=== PATIENT | male | born 1975 | race Caucasian/White ===

== ENCOUNTER → 2016-09-08 | Outpatient (CLI) | payer BC ==
[2016-09-08 16:06] LABS: Basophils % (A) 0 %; CHCM 33.4; Eosinophils # (A) 0.1 k/uL (0-0.7); Eosinophils % (A) 3 %; HCT 46.5 % (39.0-53.0); HDW 2.18; HGB 15.3 gm/dL (13.0-17.5); Luc # (Auto) 0.16; Luc % (Auto) 3; Lymphocytes # (A) 2.7 k/uL (1.0-4.8); Lymphocytes % (A) 46 %; MCH 31.8 pg (25.0-35.0); MCV 96.3 fL (80.0-100.0); Mean Platelet Volume 6.6; Monocytes # (A) 0.3 k/uL (0-1.0); Monocytes % (A) 6 %; Neutrophils # (A) 2.5 k/uL (1.3-7.7); Neutrophils % (A) 43 %; RBC 4.83 m/uL (4.30-5.90); RDW 12.7 % (11.5-15.5); WBC 5.8 k/uL (3.8-10.6); WBC (Perox) 5.91
[2016-09-08 16:28] LABS: ALT 38 U/L (21-72); AST 41 U/L (17-59); Alkaline Phosphatase 74 U/L (38-126); Anion Gap 10 mmol/L; Blood Urea Nitrogen 24 mg/dL (9-20); Calcium 9.7 mg/dL (8.4-10.2); Carbon Dioxide 27 mmol/L (22-30); Chloride 103 mmol/L (98-107); Glucose 97 mg/dL (74-99); Non-African American GFR(MDRD) >60 (>60 ml/min/1.73 sqM); Potassium 4.8 mmol/L (3.5-5.1); Sodium 140 mmol/L (137-145); Total Bilirubin 0.4 mg/dL (0.2-1.3); Total Protein 7.5 g/dL (6.3-8.2)
[2016-09-09 15:17] LABS: LOG HIV Copies/mL <1.60 (<1.60)
== END | disposition home or self-care (01) ==
LOC: LABWHC1 15:33
PROVIDERS: ATTEND Internal Medicine Infectious Disease
DX: B20 Human immunodeficiency virus [HIV] disease (principal)
CPT/HCPCS: 36415; 80053; 85025; 86360; 87536

== ENCOUNTER 2018-10-19 17:08 | Emergency (ER) | payer BC ==
[2018-10-19 17:46] VITALS: BP 156/96; PULSE 77; RESP 18; TEMP 98.6
[2018-10-19] MEDS ORDERED: PENICILLIN G BENZATHINE 1,200,000 UNIT/2 ML SYRINGE IM STA (17:50)
--- NOTE | 2018-10-19 18:47 | ED ---
General Adult HPI - General Chief complaint: Recheck/Abnormal Lab/Rx Stated complaint: Needs penicillin per PCP Time Seen by Provider: 10/19/18 17:50 Source: patient, RN notes reviewed Mode of arrival: ambulatory Limitations: no limitations - History of Present Illness Initial comments: 43-year-old male presents to the emergency department for a chief complaint of needing medication administered. Patient has had a rash for several weeks. He saw dermatology and had a biopsy done. 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 Dermatology sent him immediately over to the ER for administration of penicillin. He denies any headache, nausea or vomiting, neck stiffness, eye pain. Denies any other complaints at this time. States he is generally feeling well. Patient has no other complaints at this time including shortness of breath , chest pain, abdominal pain, nausea or vomiting, headache, or visual changes. - Related Data Home Medications Medication Instructions Recorded Confirmed Ascorbic Acid [Vitamin C] 500 mg PO DAILY 02/03/14 04/01/16 Ipratropium/Albuterol Sulfate 2 puff INHALATION RT-DAILY 02/03/14 04/01/16 [Combivent Respimat Inhaler] Multivitamins, Thera [Multivitamin] 1 tab PO DAILY 02/03/14 04/01/16 Vitamin E (Dl,Tocopheryl Acet) 400 unit PO DAILY 02/03/14 04/01/16 [Vitamin E] Elviteg/Cob/Emtri/Tenof Alafen 1 tab PO DAILY 04/01/16 04/01/16 [Genvoya Tablet] HYDROcodone/APAP 7.5-325MG [[place] 1 tab PO DAILY PRN 04/01/16 04/01/16 7.5-325] LORazepam [Ativan] 1 mg PO BID PRN 04/01/16 04/01/16 Levalbuterol Hfa Inhaler [Xopenex 2 puff INHALATION RT-TID PRN 04/01/16 04/01/16 Hfa Inhaler] Varenicline [Chantix] 1 mg PO BID 04/01/16 04/01/16 valACYclovir HCL [Valtrex] 2,000 mg PO DAILY PRN 04/01/16 04/01/16 Previous Rx's Medication Instructions Recorded Hydrocodone/Acetaminophen [[place] 1 each PO Q6HR PRN #20 tab 04/01/16 5-325] Sulfamethoxazole/Trimethoprim 1 each PO Q12H 14 Days tab 04/01/16 [Bactrim DS 800-160 mg] Allergies Allergy/AdvReac Type Severity Reaction Status Date / Time No Known Allergies Allergy Verified 10/19/18 17:46 Review of Systems ROS Statement: Those systems with pertinent positive or pertinent negative responses have been documented in the HPI. ROS Other: All systems not noted in ROS Statement are negative. Past Medical History Past Medical History: No Reported History Additional Past Medical History / Comment(s): SKIN CANCER, HIV, secondary syphillis History of Any Multi-Drug Resistant Organisms: MRSA Date of last positivie culture/infection: 02/03/2014 MDRO Source:: Face Past Surgical History: Orthopedic Surgery Additional Past Surgical History / Comment(s): SKIN CANCER REMOVAL, ANKLE SURGERY Past Psychological History: No Psychological Hx Reported Smoking Status: Current some day smoker Past Alcohol Use History: Daily Past Drug Use History: Marijuana General Exam Limitations: no limitations General appearance: alert, in no apparent distress Head exam: Present: atraumatic, normocephalic, normal inspection Eye exam: Present: normal appearance, PERRL (No evidence of [place] Mckeon pupil), EOMI. Absent: scleral icterus, conjunctival injection, periorbital swelling ENT exam: Present: normal exam, normal oropharynx, mucous membranes moist, TM's normal bilaterally Neck exam: Present: normal inspection, full ROM. Absent: tenderness, meningismus (No neck stiffness, negative Kernig or Brudzinski sign), lymphadenopathy Respiratory exam: Present: normal lung sounds bilaterally. Absent: respiratory distress, wheezes, rales, rhonchi, stridor Cardiovascular Exam: Present: regular rate, normal rhythm, normal heart sounds. Absent: systolic murmur, diastolic murmur, rubs, gallop, clicks Neurological exam: Present: alert, oriented X3, CN II-XII intact, normal gait, reflexes normal (No hyperreflexia) Psychiatric exam: Present: normal affect, normal mood Skin exam: Present: rash (She denies any erythematous maculopapular rash noted to bilateral arms. There are also about 3 small lesions noted to the low dorsum ) Course Vital Signs 10/19/18 17:40 Temperature 98.6 F Pulse Rate 77 Respiratory 18 Rate Blood Pressure 156/96 O2 Sat by Pulse 97 Oximetry Medical Decision Making - Medical Decision Making 43-year-old male presents to the emergency department for a chief complaint of needing penicillin administered. Patient was diagnosed by Victorino owens and sent to the ER. Paperwork was reviewed and patient needs 2.4 units of penicillin administered. On exam patient does have maculopapular rash noted to bilateral arms. Mild rash noted to the dorsum. No evidence of neurologic or systemic involvement. Medication was administered. Patient will follow-up with the dry cleaner helper and return here if he has any worsening symptoms. Patient was told he only needed one dose, I did discuss that it is possible he may need repeat doses over the next 2 weeks so to follow-up with Mell for more direction. Disposition Clinical Impression: Secondary syphilis in male, Medication administered Disposition: HOME SELF-CARE Condition: Good Additional Instructions: Please follow up with dermatology in 1-2 days. As discussed you may need 2 more doses of this medication. Return here if you have any worsening symptoms including headaches, neck stiffness or any other concerns. Is patient prescribed a controlled substance at d/c from ED?: No Referrals: Juan Carlos Perdomo MD [Primary Care Provider] - 1-2 days Jumana Monte MD [STAFF PHYSICIAN] - 1-2 days Time of Disposition: 18:53
== END 2018-10-19 19:09 | disposition home or self-care (01) ==
LOC: EC 17:08
DX: Z02.89 Encounter for other administrative examinations (principal); A51.49 Other secondary syphilitic conditions; Z21 Asymptomatic human immunodeficiency virus [HIV] infection status; Z86.19 Personal history of other infectious and parasitic diseases; Z86.14 Personal history of Methicillin resistant Staphylococcus aureus infection; Z85.828 Personal history of other malignant neoplasm of skin; F17.200 Nicotine dependence, unspecified, uncomplicated; Z79.899 Other long term (current) drug therapy
CPT/HCPCS: 99281; 96372; J0561

== ENCOUNTER 2018-11-25 12:01 | Observation (INO) | payer BC ==
[2018-11-25 14:15] LABS: Basophils % (A) 0 %; Eosinophils # (A) 0.1 k/uL (0-0.7); Eosinophils % (A) 1 %; HCT 51.5 % (39.0-53.0); HGB 16.1 gm/dL (13.0-17.5); Lymphocytes # (A) 2.7 k/uL (1.0-4.8); Lymphocytes % (A) 24 %; MCH 30.1 pg (25.0-35.0); MCHC 31.3 g/dL (31.0-37.0); MCV 96.2 fL (80.0-100.0); Mean Platelet Volume 6.3; Monocytes # (A) 0.7 k/uL (0-1.0); Monocytes % (A) 6 %; Neutrophils # (A) 7.5 k/uL (1.3-7.7); Neutrophils % (A) 68 %; Platelet Count 296 k/uL (150-450); RBC 5.35 m/uL (4.30-5.90); RDW 14.7 % (11.5-15.5); WBC 11.2 k/uL (3.8-10.6)
[2018-11-25 14:34] LABS: INR 0.9 (<1.2); Partial Thromboplastin Time 22.6 sec (22.0-30.0); Prothrombin Time 9.7 sec (9.0-12.0)
[2018-11-25 14:42] LABS: Appearance,Urine Clear (Clear); Bilirubin,Urine Negative (Negative); Blood,Urine Negative (Negative); Color,Urine Light Yellow; Glucose,Urine (UA) Negative (Negative); Ketones,Urine Negative (Negative); Leukocyte Esterase,Urine Negative (Negative); Nitrite,Urine Negative (Negative); Protein,Urine Negative (Negative); Specific Gravity,Urine 1.015 (1.001-1.035); Urobilinogen,Urine <2.0 mg/dL (<2.0)
[2018-11-25] MEDS ORDERED: ASPIRIN 81 MG PO STA (14:47)
--- NOTE | 2018-11-25 14:59 | XR ---
EXAMINATION TYPE: XR chest 2V DATE OF EXAM: 11/25/2018 COMPARISON: NONE TECHNIQUE: PA and lateral views submitted. HISTORY: Left-sided chest pain FINDINGS: The lungs are clear and there is no pneumothorax, pleural effusion, or focal pneumonia. Vague nodul ar density overlying the right lower lung field may represent nipple shadow. There is hyperinflation correlate for asthma or COPD. Biapical pleural thickening. IMPRESSION: 1. No acute process. Correlate for asthma or COPD secondary to hyperinflation. 2. Vague nodular density overlying the right lower lung field may represent a nipple shadow correlate clinically.
--- NOTE | 2018-11-25 15:09 | ED ---
General Adult HPI - General Chief complaint: Abdominal Pain Stated complaint: left side pain Time Seen by Provider: 11/25/18 14:22 Source: patient, RN notes reviewed, old records reviewed Mode of arrival: ambulatory Limitations: no limitations - History of Present Illness Initial comments: 43-year-old male patient with past month history of tobacco abuse, secondary syphilis status post treatment presents to ED with approximately 2 weeks of waxing and waning pain approximately 2 inches below his left nipple. Denies any radiation. Patient reports that this pain is exacerbated by musculoskeletal movement, twisting, coughing, deep inspiration. Patient does report that appears to be worse with exertion and better at rest. Patient describes as a deck pain. Patient has any chest pain at rest, patient has any shortness of breath. Patient reports that he is a daily smoker. Patient reports that he does have pain with cough. Patient states that he does not have any personal cardiac history. Reports that he had a stress test "a few years back" and was reportedly normal. Patient does not currently have any pain. Patient is currently asymptomatic. Patient has any diaphoresis, nausea vomiting diarrhea, abdominal pain. Systemic: Pt denies fatigue, myalgia, fever/chills, rash. Pt denies weakness, night sweats, weight loss. Neuro: Pt denies headache, visual disturbances, syncope or pre-syncope. HEENT: Pt denies ocular discharge or irritation, otalgia, rhinorrhea, pharyngitis or notable lymphadenopathy. Cardiopulmonary: Pt denies SOB, heart palpitations, dyspnea on exertion. Abdominal/GI: Pt denies abdominal pain, n/v/d. : Pt denies dysuria, burning w/ urination, frequency/urgency. Denies new onset urinary or bowel incontinence. MSK: Pt denies myalgia, loss of strength or function in extremities. Neuro: Pt denies new onset weakness, paresthesias. - Related Data Home Medications Medication Instructions Recorded Confirmed Ascorbic Acid [Vitamin C] 500 mg PO DAILY 02/03/14 04/01/16 Ipratropium/Albuterol Sulfate 2 puff INHALATION RT-DAILY 02/03/14 04/01/16 [Combivent Respimat Inhaler] Multivitamins, Thera [Multivitamin] 1 tab PO DAILY 02/03/14 04/01/16 Vitamin E (Dl,Tocopheryl Acet) 400 unit PO DAILY 02/03/14 04/01/16 [Vitamin E] Elviteg/Cob/Emtri/Tenof Alafen 1 tab PO DAILY 04/01/16 04/01/16 [Genvoya Tablet] HYDROcodone/APAP 7.5-325MG [[place] 1 tab PO DAILY PRN 04/01/16 04/01/16 7.5-325] LORazepam [Ativan] 1 mg PO BID PRN 04/01/16 04/01/16 Levalbuterol Hfa Inhaler [Xopenex 2 puff INHALATION RT-TID PRN 04/01/16 04/01/16 Hfa Inhaler] Varenicline [Chantix] 1 mg PO BID 04/01/16 04/01/16 valACYclovir HCL [Valtrex] 2,000 mg PO DAILY PRN 04/01/16 04/01/16 Previous Rx's Medication Instructions Recorded Hydrocodone/Acetaminophen [[place] 1 each PO Q6HR PRN #20 tab 04/01/16 5-325] Sulfamethoxazole/Trimethoprim 1 each PO Q12H 14 Days tab 04/01/16 [Bactrim DS 800-160 mg] Allergies Allergy/AdvReac Type Severity Reaction Status Date / Time No Known Allergies Allergy Verified 11/25/18 12:05 Review of Systems ROS Statement: Those systems with pertinent positive or pertinent negative responses have been documented in the HPI. ROS Other: All systems not noted in ROS Statement are negative. Past Medical History Past Medical History: No Reported History Additional Past Medical History / Comment(s): SKIN CANCER, HIV, secondary syphillis History of Any Multi-Drug Resistant Organisms: MRSA Date of last positivie culture/infection: 02/03/2014 MDRO Source:: Face Past Surgical History: Orthopedic Surgery Additional Past Surgical History / Comment(s): SKIN CANCER REMOVAL, ANKLE SURGERY Past Psychological History: No Psychological Hx Reported Smoking Status: Current some day smoker Past Alcohol Use History: None Reported, Occasional Past Drug Use History: Marijuana General Exam - General Exam Comments Initial Comments: Constitutional: NAD, AOX3, Pt has pleasant affect. HEENT: NC/AT, trachea midline, neck supple, no lymphadenopathy. Posterior pharynx non erythematous, without exudates. External ears appear normal, without discharge. Mucous membranes moist. Eyes PERRLA, EOM intact. There is no scleral icterus. No pallor noted. Cardiopulmonary: RRR, no murmurs, rubs or gallops, no JVD noted. Lungs CTAB in anterior and posterior barnes. No peripheral edema. Pain not icterus. I palpation. Abdominal exam: Abdomen soft and non-distended. Abdomen non-tender to palpation in all 4 quadrants. Bowel sounds active in LLQ. No hepatosplenomegaly. No ecchymosis Neuro: CN II-XII grossly intact. No nuchal rigidity. MSK: No posterior calf tenderness bilaterally, homans sign negative bilaterally. Posterior tibialis and radial pulse +2 bilaterally. Sensation intact in upper and lower extremities. Full active ROM in upper and lower extremities, 5/5 stregnth. Limitations: no limitations Course Vital Signs 11/25/18 11/25/18 12:03 16:53 Temperature 98 F 98.1 F Pulse Rate 78 77 Respiratory 20 16 Rate Blood Pressure 165/98 149/92 O2 Sat by Pulse 99 97 Oximetry Medical Decision Making - Medical Decision Making 43-year-old male patient with past month history of tobacco abuse, secondary syphilis status post treatment presents to ED with approximately 2 weeks of waxing and waning pain approximately 2 inches below his left nipple. Denies any radiation. Patient reports that this pain is exacerbated by musculoskeletal movement, twisting, coughing, deep inspiration. Patient does report that appears to be worse with exertion and better at rest. Patient describes as a deck pain. Patient has any chest pain at rest, patient has any shortness of b reath. Patient reports that he is a daily smoker. Patient reports that he does have pain with cough. Patient states that he does not have any personal cardiac history. Reports that he had a stress test "a few years back" and was reportedly normal. Patient does not currently have any pain. Patient is currently asymptomatic. Patient has any diaphoresis, nausea vomiting diarrhea, abdominal pain. Pt vss, afebrile. Physical exam did not display acute pathology. Dr. donohue field mild leukocytosis of 11.2. Coagulation studies non- impressive. D-dimer mildly elevated at 1.73. CMP noncompressive. UA negative. EKG not concerning for acute ischemia. CT chest angiography revealed no evidence of pulmonary embolism. Mild fibrotic changes. Mild emphysema. Subsegmental atelectasis of lung bases. Patient admitted for telemetry, cardiac observation. Case discussed with Dr. Castillo. - Lab Data Result diagrams: 11/25/18 13:55 11/25/18 14:00 Lab Results 11/25/18 11/25/18 11/25/18 Range/Units 13:55 13:55 14:00 WBC 11.2 H (3.8-10.6) k/uL RBC 5.35 (4.30-5.90) m/uL Hgb 16.1 (13.0-17.5) gm/dL Hct 51.5 (39.0-53.0) % MCV 96.2 (80.0-100.0) fL MCH 30.1 (25.0-35.0) pg MCHC 31.3 (31.0-37.0) g/dL RDW 14.7 (11.5-15.5) % Plt Count 296 (150-450) k/uL Neutrophils % 68 % Lymphocytes % 24 % Monocytes % 6 % Eosinophils % 1 % Basophils % 0 % Neutrophils # 7.5 (1.3-7.7) k/uL Lymphocytes # 2.7 (1.0-4.8) k/uL Monocytes # 0.7 (0-1.0) k/uL Eosinophils # 0.1 (0-0.7) k/uL Basophils # 0.0 (0-0.2) k/uL PT 9.7 (9.0-12.0) sec INR 0.9 (<1.2) APTT 22.6 (22.0-30.0) sec D-Dimer (<0.60) mg/L FEU Sodium 140 (137-145) mmol/L Potassium 4.1 (3.5-5.1) mmol/L Chloride 107 (98-107) mmol/L Carbon Dioxide 24 (22-30) mmol/L Anion Gap 9 mmol/L BUN 14 (9-20) mg/dL Creatinine 0.63 L (0.66-1.25) mg/dL Est GFR (CKD-EPI)AfAm >90 (>60 ml/min/1.73 sqM) Est GFR (CKD-EPI)NonAf >90 (>60 ml/min/1.73 sqM) Glucose 97 (74-99) mg/dL Calcium 10.1 (8.4-10.2) mg/dL Magnesium (1.6-2.3) mg/dL Total Bilirubin 0.7 (0.2-1.3) mg/dL AST 35 (17-59) U/L ALT 40 (21-72) U/L Alkaline Phosphatase 92 (38-126) U/L Troponin I (0.000-0.034) ng/mL Total Protein 7.6 (6.3-8.2) g/dL Albumin 4.7 (3.5-5.0) g/dL Amylase 111 H (30-110) U/L Lipase 153 (23-300) U/L Urine Color Urine Appearance (Clear) Urine pH (5.0-8.0) Ur Specific [place] (1.001-1.035) Urine Protein (Negative) Urine Glucose (UA) (Negative) Urine Ketones (Negative) Urine Blood (Negative) Urine Nitrite (Negative) Urine Bilirubin (Negative) Urine Urobilinogen (<2.0) mg/dL Ur Leukocyte Esterase (Negative) 11/25/18 11/25/18 11/25/18 Range/Units 14:00 14:00 14:00 WBC (3.8-10.6) k/uL RBC (4.30-5.90) m/uL Hgb (13.0-17.5) gm/dL Hct (39.0-53.0) % MCV (80.0-100.0) fL MCH (25.0-35.0) pg MCHC (31.0-37.0) g/dL RDW (11.5-15.5) % Plt Count (150-450) k/uL Neutrophils % % Lymphocytes % % Monocytes % % Eosinophils % % Basophils % % Neutrophils # (1.3-7.7) k/uL Lymphocytes # (1.0-4.8) k/uL Monocytes # (0-1.0) k/uL Eosinophils # (0-0.7) k/uL Basophils # (0-0.2) k/uL PT (9.0-12.0) sec INR (<1.2) APTT (22.0-30.0) sec D-Dimer 1.73 H (<0.60) mg/L FEU Sodium (137-145) mmol/L Potassium (3.5-5.1) mmol/L Chloride (98-107) mmol/L Carbon Dioxide (22-30) mmol/L Anion Gap mmol/L BUN (9-20) mg/dL Creatinine (0.66-1.25) mg/dL Est GFR (CKD-EPI)AfAm (>60 ml/min/1.73 sqM) Est GFR (CKD-EPI)NonAf (>60 ml/min/1.73 sqM) Glucose (74-99) mg/dL Calcium (8.4-10.2) mg/dL Magnesium 2.2 (1.6-2.3) mg/dL Total Bilirubin (0.2-1.3) mg/dL AST (17-59) U/L ALT (21-72) U/L Alkaline Phosphatase (38-126) U/L Troponin I <0.012 (0.000-0.034) ng/mL Total Protein (6.3-8.2) g/dL Albumin (3.5-5.0) g/dL Amylase (30-110) U/L Lipase (23-300) U/L Urine Color Urine Appearance (Clear) Urine pH (5.0-8.0) Ur Specific [place] (1.001-1.035) Urine Protein (Negative) Urine Glucose (UA) (Negative) Urine Ketones (Negative) Urine Blood (Negative) Urine Nitrite (Negative) Urine Bilirubin (Negative) Urine Urobilinogen (<2.0) mg/dL Ur Leukocyte Esterase (Negative) 11/25/18 Range/Units 14:27 WBC (3.8-10.6) k/uL RBC (4.30-5.90) m/uL Hgb (13.0-17.5) gm/dL Hct (39.0-53.0) % MCV (80.0-100.0) fL MCH (25.0-35.0) pg MCHC (31.0-37.0) g/dL RDW (11.5-15.5) % Plt Count (150-450) k/uL Neutrophils % % Lymphocytes % % Monocytes % % Eosinophils % % Basophils % % Neutrophils # (1.3-7.7) k/uL Lymphocytes # (1.0-4.8) k/uL Monocytes # (0-1.0) k/uL Eosinophils # (0-0.7) k/uL Basophils # (0-0.2) k/uL PT (9.0-12.0) sec INR (<1.2) APTT (22.0-30.0) sec D-Dimer (<0.60) mg/L FEU Sodium (137-145) mmol/L Potassium (3.5-5.1) mmol/L Chloride (98-107) mmol/L Carbon Dioxide (22-30) mmol/L Anion Gap mmol/L BUN (9-20) mg/dL Creatinine (0.66-1.25) mg/dL Est GFR (CKD-EPI)AfAm (>60 ml/min/1.73 sqM) Est GFR (CKD-EPI)NonAf (>60 ml/min/1.73 sqM) Glucose (74-99) mg/dL Calcium (8.4-10.2) mg/dL Magnesium (1.6-2.3) mg/dL Total Bilirubin (0.2-1.3) mg/dL AST (17-59) U/L ALT (21-72) U/L Alkaline Phosphatase (38-126) U/L Troponin I (0.000-0.034) ng/mL Total Protein (6.3-8.2) g/dL Albumin (3.5-5.0) g/dL Amylase (30-110) U/L Lipase (23-300) U/L Urine Color Light Yellow Urine Appearance Clear (Clear) Urine pH 6.0 (5.0-8.0) Ur Specific [place] 1.015 (1.001-1.035) Urine Protein Negative (Negative) Urine Glucose (UA) Negative (Negative) Urine Ketones Negative (Negative) Urine Blood Negative (Negative) Urine Nitrite Negative (Negative) Urine Bilirubin Negative (Negative) Urine Urobilinogen <2.0 (<2.0) mg/dL Ur Leukocyte Esterase Negative (Negative) Disposition Clinical Impression: Chest pain Disposition: ADMITTED IP TO THIS [facility] Condition: Serious Is patient prescribed a controlled substance at d/c from ED?: No Referrals: Juan Carlos Perdomo MD [Primary Care Provider] - 1-2 days
[2018-11-25] MEDS ORDERED: SODIUM CHLORIDE 0.9% 1,000 ML IV STA (15:10)
[2018-11-25 15:16] LABS: ALT 40 U/L (21-72); AST 35 U/L (17-59); Albumin 4.7 g/dL (3.5-5.0); Alkaline Phosphatase 92 U/L (38-126); Amylase 111 U/L (30-110); Anion Gap 9 mmol/L; Blood Urea Nitrogen 14 mg/dL (9-20); Calcium 10.1 mg/dL (8.4-10.2); Carbon Dioxide 24 mmol/L (22-30); Chloride 107 mmol/L (98-107); Glucose 97 mg/dL (74-99); Lipase 153 U/L (23-300); Potassium 4.1 mmol/L (3.5-5.1); Sodium 140 mmol/L (137-145); Total Bilirubin 0.7 mg/dL (0.2-1.3); Total Protein 7.6 g/dL (6.3-8.2)
--- NOTE | 2018-11-25 17:15 | CT ---
EXAMINATION TYPE: CT chest angio for PE DATE OF EXAM: 11/25/2018 COMPARISON: None HISTORY: Left lower lobe pain. CT DLP: 326.4 mGycm Automated exposure control for dose reduction was used. CONTRAST: CT Chest for pulmonary embolism performed with with IV Contrast, patient injected with 100 mL of Isov ue 370. There are 3-D post processed images. FINDINGS: There is no mediastinal adenopathy. Thoracic aorta shows no evidence of aneurysm or dissection. Heart size is normal. There is no pericardial effusion. There are no hilar masses. There is normal contrast opacification of the pulmonary arteries. I see no filling defect. The lungs are clear of consolidation. There is no evidence of a pulmonary mass. There is pulmonary em physema at the lung apices. There is some mild pleural thickening at the lung apices. There is no bon y destructive process. There is small linear density at the lung bases. IMPRESSION: No evidence of pulmonary embolism. Pulmonary mild fibrotic changes. Mild emphysema. Subsegmental atel ectasis at the lung bases.
[2018-11-25] MEDS ORDERED: NITROGLYCERIN SL TABS 0.4 MG TAB SUBLINGUAL PRN (18:36)
[2018-11-25] MEDS ORDERED: valACYclovir HCL 1,000 MG TABLET PO PRN (20:31)
--- NOTE | 2018-11-25 21:03 | ED ---
Medical Decision Making - Lab Data Result diagrams: 11/25/18 13:55 11/25/18 14:00 Lab Results 11/25/18 11/25/18 11/25/18 Range/Units 13:55 13:55 14:00 WBC 11.2 H (3.8-10.6) k/uL RBC 5.35 (4.30-5.90) m/uL Hgb 16.1 (13.0-17.5) gm/dL Hct 51.5 (39.0-53.0) % MCV 96.2 (80.0-100.0) fL MCH 30.1 (25.0-35.0) pg MCHC 31.3 (31.0-37.0) g/dL RDW 14.7 (11.5-15.5) % Plt Count 296 (150-450) k/uL Neutrophils % 68 % Lymphocytes % 24 % Monocytes % 6 % Eosinophils % 1 % Basophils % 0 % Neutrophils # 7.5 (1.3-7.7) k/uL Lymphocytes # 2.7 (1.0-4.8) k/uL Monocytes # 0.7 (0-1.0) k/uL Eosinophils # 0.1 (0-0.7) k/uL Basophils # 0.0 (0-0.2) k/uL PT 9.7 (9.0-12.0) sec INR 0.9 (<1.2) APTT 22.6 (22.0-30.0) sec D-Dimer (<0.60) mg/L FEU Sodium 140 (137-145) mmol/L Potassium 4.1 (3.5-5.1) mmol/L Chloride 107 (98-107) mmol/L Carbon Dioxide 24 (22-30) mmol/L Anion Gap 9 mmol/L BUN 14 (9-20) mg/dL Creatinine 0.63 L (0.66-1.25) mg/dL Est GFR (CKD-EPI)AfAm >90 (>60 ml/min/1.73 sqM) Est GFR (CKD-EPI)NonAf >90 (>60 ml/min/1.73 sqM) Glucose 97 (74-99) mg/dL Calcium 10.1 (8.4-10.2) mg/dL Magnesium (1.6-2.3) mg/dL Total Bilirubin 0.7 (0.2-1.3) mg/dL AST 35 (17-59) U/L ALT 40 (21-72) U/L Alkaline Phosphatase 92 (38-126) U/L Troponin I (0.000-0.034) ng/mL Total Protein 7.6 (6.3-8.2) g/dL Albumin 4.7 (3.5-5.0) g/dL Amylase 111 H (30-110) U/L Lipase 153 (23-300) U/L Urine Color Urine Appearance (Clear) Urine pH (5.0-8.0) Ur Specific [place] (1.001-1.035) Urine Protein (Negative) Urine Glucose (UA) (Negative) Urine Ketones (Negative) Urine Blood (Negative) Urine Nitrite (Negative) Urine Bilirubin (Negative) Urine Urobilinogen (<2.0) mg/dL Ur Leukocyte Esterase (Negative) 11/25/18 11/25/18 11/25/18 Range/Units 14:00 14:00 14:00 WBC (3.8-10.6) k/uL RBC (4.30-5.90) m/uL Hgb (13.0-17.5) gm/dL Hct (39.0-53.0) % MCV (80.0-100.0) fL MCH (25.0-35.0) pg MCHC (31.0-37.0) g/dL RDW (11.5-15.5) % Plt Count (150-450) k/uL Neutrophils % % Lymphocytes % % Monocytes % % Eosinophils % % Basophils % % Neutrophils # (1.3-7.7) k/uL Lymphocytes # (1.0-4.8) k/uL Monocytes # (0-1.0) k/uL Eosinophils # (0-0.7) k/uL Basophils # (0-0.2) k/uL PT (9.0-12.0) sec INR (<1.2) APTT (22.0-30.0) sec D-Dimer 1.73 H (<0.60) mg/L FEU Sodium (137-145) mmol/L Potassium (3.5-5.1) mmol/L Chloride (98-107) mmol/L Carbon Dioxide (22-30) mmol/L Anion Gap mmol/L BUN (9-20) mg/dL Creatinine (0.66-1.25) mg/dL Est GFR (CKD-EPI)AfAm (>60 ml/min/1.73 sqM) Est GFR (CKD-EPI)NonAf (>60 ml/min/1.73 sqM) Glucose (74-99) mg/dL Calcium (8.4-10.2) mg/dL Magnesium 2.2 (1.6-2.3) mg/dL Total Bilirubin (0.2-1.3) mg/dL AST (17-59) U/L ALT (21-72) U/L Alkaline Phosphatase (38-126) U/L Troponin I <0.012 (0.000-0.034) ng/mL Total Protein (6.3-8.2) g/dL Albumin (3.5-5.0) g/dL Amylase (30-110) U/L Lipase (23-300) U/L Urine Color Urine Appearance (Clear) Urine pH (5.0-8.0) Ur Specific [place] (1.001-1.035) Urine Protein (Negative) Urine Glucose (UA) (Negative) Urine Ketones (Negative) Urine Blood (Negative) Urine Nitrite (Negative) Urine Bilirubin (Negative) Urine Urobilinogen (<2.0) mg/dL Ur Leukocyte Esterase (Negative) 11/25/18 Range/Units 14:27 WBC (3.8-10.6) k/uL RBC (4.30-5.90) m/uL Hgb (13.0-17.5) gm/dL Hct (39.0-53.0) % MCV (80.0-100.0) fL MCH (25.0-35.0) pg MCHC (31.0-37.0) g/dL RDW (11.5-15.5) % Plt Count (150-450) k/uL Neutrophils % % Lymphocytes % % Monocytes % % Eosinophils % % Basophils % % Neutrophils # (1.3-7.7) k/uL Lymphocytes # (1.0-4.8) k/uL Monocytes # (0-1.0) k/uL Eosinophils # (0-0.7) k/uL Basophils # (0-0.2) k/uL PT (9.0-12.0) sec INR (<1.2) APTT (22.0-30.0) sec D-Dimer (<0.60) mg/L FEU Sodium (137-145) mmol/L Potassium (3.5-5.1) mmol/L Chloride (98-107) mmol/L Carbon Dioxide (22-30) mmol/L Anion Gap mmol/L BUN (9-20) mg/dL Creatinine (0.66-1.25) mg/dL Est GFR (CKD-EPI)AfAm (>60 ml/min/1.73 sqM) Est GFR (CKD-EPI)NonAf (>60 ml/min/1.73 sqM) Glucose (74-99) mg/dL Calcium (8.4-10.2) mg/dL Magnesium (1.6-2.3) mg/dL Total Bilirubin (0.2-1.3) mg/dL AST (17-59) U/L ALT (21-72) U/L Alkaline Phosphatase (38-126) U/L Troponin I (0.000-0.034) ng/mL Total Protein (6.3-8.2) g/dL Albumin (3.5-5.0) g/dL Amylase (30-110) U/L Lipase (23-300) U/L Urine Color Light Yellow Urine Appearance Clear (Clear) Urine pH 6.0 (5.0-8.0) Ur Specific [place] 1.015 (1.001-1.035) Urine Protein Negative (Negative) Urine Glucose (UA) Negative (Negative) Urine Ketones Negative (Negative) Urine Blood Negative (Negative) Urine Nitrite Negative (Negative) Urine Bilirubin Negative (Negative) Urine Urobilinogen <2.0 (<2.0) mg/dL Ur Leukocyte Esterase Negative (Negative) - EKG Data -: EKG Interpreted by Me (and dr villafana) EKG Comments: Ventricular rate 73, PA interval 140, QRS 70, QT/QTC 362/398. Normal sensory rhythm with sinus arrhythmia. No concern for acute ischemia. Disposition Clinical Impression: Chest pain Disposition: ADMITTED IP TO THIS [facility] Condition: Serious Is patient prescribed a controlled substance at d/c from ED?: No
[2018-11-25] MEDS ORDERED: ACETAMINOPHEN TAB 500 MG TAB PO PRN (21:12)
[2018-11-26 00:59] VITALS: BMI 27.3
[2018-11-26 03:45] LABS: Cholesterol 240 mg/dL (<200); HDL Cholesterol 55 mg/dL (40-60); LDL Cholesterol,Calculated 154 mg/dL (0-99); Triglycerides 153 mg/dL (<150)
[2018-11-26 07:58] VITALS: RESP 18
[2018-11-26] MEDS ORDERED: Elviteg/Cob/Emtri/Tenof Alafen [Genvoya Tablet] 1 TAB PO SCH (09:00)
[2018-11-26] MEDS ORDERED: ASPIRIN 325 MG TAB PO SCH (09:00)
--- NOTE | 2018-11-26 09:57 | P.CRDCN ---
History of Present Illness History of present illness: This is a pleasant 43-year-old male past medical history significant for HIV, syphillis and chronic nicotine dependence. He states approximately 2 weeks ago he was doing some yard work and raking leaves. A day or 2 after that he started noticing a discomfort in the left rib/torso/flank region. The discomfort was worse with movement of his upper body or when he took in a deep breath or coughed. The pain has been intermittent over the previous 2 weeks with no specific alleviating factor. Symptoms seem to intensify over the previous couple of days therefore he came to the hospital for further evaluation. He states he has never officially been diagnosed with hypertension however his blood pressures have been elevated at his last few doctor's appointments. EKG reveals sinus mechanism with no acute ST or T wave abnormalities noted. Chest x-ray reveals evidence of COPD with no acute cardiopulmonary process noted. CTA chest is negative for pulmonary embolism, evidence of emphysema and pulmonary fibrotic changes were noted. Laboratory data reviewed, WBC 11.2, hemoglobin 16.1, platelets 296, d-dimer 1.73, sodium 140, potassium 4.1, creatinine 0.63, magnesium 2.2, cardiac enzymes negative 3, LDL 154, amylase 111. He takes no daily cardiac medications. At the time of my exam: CONSTITUTIONAL: Denies fever. Denies chills. EYES: Denies blurred vision. Denies vision changes. Denies eye pain. EARS, NOSE, MOUTH & THROAT: Denies headache. Denies sore throat. Denies ear pain. CARDIOVASCULAR: Denies chest pain. Denies shortness of breath. Denies orthopnea. Denies PND. Denies palpitations. RESPIRATORY: Denies cough. GASTROINTESTINAL: Denies abdominal pain. Denies diarrhea. Denies constipation. Denies nausea. Denies vomiting. MUSCULOSKELETAL: Denies myalgias. INTEGUMENTARY: Denies pruitis. Denies rash. NEUROLOGIC: Denies numbness. Denies tingling. Denies weakness. PSYCHIATRIC: Denies anxiety. Denies depression. ENDOCRINE: Denies fatigue. Denies weight change. Denies polydipsia. Denies polyurina. GENITOURINARY: Denies burning, hematuria or urgency with micturation. HEMATOLOGIC: Denies history of anemia. Denies bleeding. Blood pressure 137/81 heart rate 71 afebrile maintaining oxygen saturation on room air GENERAL: This is a 43-year-old male in no apparent distress at the time of my examination. HEENT: Head is atraumatic, normocephalic. Pupils are equal, round. Sclerae anicteric. Conjunctivae are clear. Mucous membranes of the mouth are moist. Neck is supple. There is no jugular venous distention. No carotid bruit is heard. LUNGS: Clear to auscultation no wheezes, rales or rhonchi. No chest wall tenderness is noted on palpation or with deep breathing. HEART: Regular rate and rhythm without murmurs, rubs or gallops. S1 and S2 heard. ABDOMEN: Soft, nontender. Bowel sounds are heard. No organomegaly noted. EXTREMITIES: No evidence of peripheral edema and no calf tenderness noted. VASCULAR: Radial and dorsalis pedis pulses palpated, no evidence of clubbing. NEUROLOGIC: Patient is awake, alert and oriented x3. ASSESSMENT Pleuritic chest discomfort, suggestive of musculoskeletal strain. Hypertension Dyslipidemia HIV Chronic nicotine dependence PLAN An acute coronary event has been ruled out. Symptoms are reproducible and worse with deep inspiration/cough, not suggestive of angina. Obtain 2D echocardiogram and doppler study to assess cardiac structure and function. Initiate on losartan 25 mg daily. Advised him to obtain a blood pressure cuff for daily BP monitoring. Lifestyle modifications recommended for lowering of LDL cholesterol. Thank you kindly for this consultation. Nurse Practitioner note has been reviewed, I agree with a documented findings and plan of care. Patient was seen and examined. Past Medical History Past Medical History: No Reported History Additional Past Medical History / Comment(s): SKIN CANCER, HIV, secondary syphillis History of Any Multi-Drug Resistant Organisms: MRSA Date of last positivie culture/infection: 02/03/2014 MDRO Source:: Face Past Surgical History: Orthopedic Surgery Additional Past Surgical History / Comment(s): SKIN CANCER REMOVAL, ANKLE SURGERY Past Anesthesia/Blood Transfusion Reactions: No Reported Reaction Past Psychological History: No Psychological Hx Reported Smoking Status: Current some day smoker Past Alcohol Use History: None Reported, Occasional Past Drug Use History: Marijuana Medications and Allergies Home Medications Medication Instructions Recorded Confirmed Type Elviteg/Cob/Emtri/Tenof Alafen 1 tab PO DAILY 04/01/16 11/25/18 History [Genvoya Tablet] valACYclovir HCL [Valtrex] 2,000 mg PO DAILY PRN 04/01/16 11/25/18 History Albuterol Inhaler [Ventolin Hfa 1 - 2 puff INHALATION RT-Q6H PRN 11/25/18 11/25/18 History Inhaler] Allergies Allergy/AdvReac Type Severity Reaction Status Date / Time No Known Allergies Allergy Verified 11/25/18 18:56 Physical Exam Vitals: Vital Signs Temp Pulse Pulse Resp BP BP Pulse Ox 11/26/18 03:32 98.2 F 83 16 152/86 97 11/26/18 00:45 99 11/25/18 23:57 98.0 F 61 16 127/82 95 11/25/18 22:24 78 18 133/78 98 11/25/18 16:53 98.1 F 77 16 149/92 97 11/25/18 12:03 98 F 78 20 165/98 99 Intake and Output 11/25/18 11/26/18 11/26/18 22:59 06:59 14:59 Intake Total 210 Balance 210 Intake: Intake, IV Titration 210 Amount Sodium Chloride 0.9% 1, 210 000 ml @ 999 mls/hr IV . Q1H1M STA Rx#:[id number] Other: # Voids 1 Results 11/25/18 13:55 11/25/18 14:00 Cardiac Enzymes 11/25/18 11/25/18 11/25/18 Range/Units 14:00 14:00 19:19 AST 35 (17-59) U/L Troponin I <0.012 <0.012 (0.000-0.034) ng/mL 11/26/18 Range/Units 00:17 AST (17-59) U/L Troponin I <0.012 (0.000-0.034) ng/mL Coagulation 11/25/18 Range/Units 13:55 PT 9.7 (9.0-12.0) sec APTT 22.6 (22.0-30.0) sec Lipids 11/25/18 Range/Units 14:00 Triglycerides 153 H (<150) mg/dL Cholesterol 240 H (<200) mg/dL HDL Cholesterol 55 (40-60) mg/dL CBC 11/25/18 Range/Units 13:55 WBC 11.2 H (3.8-10.6) k/uL RBC 5.35 (4.30-5.90) m/uL Hgb 16.1 (13.0-17.5) gm/dL Hct 51.5 (39.0-53.0) % Plt Count 296 (150-450) k/uL Comprehensive Metabolic Panel 11/25/18 Range/Units 14:00 Sodium 140 (137-145) mmol/L Potassium 4.1 (3.5-5.1) mmol/L Chloride 107 (98-107) mmol/L Carbon Dioxide 24 (22-30) mmol/L BUN 14 (9-20) mg/dL Creatinine 0.63 L (0.66-1.25) mg/dL Glucose 97 (74-99) mg/dL Calcium 10.1 (8.4-10.2) mg/dL AST 35 (17-59) U/L ALT 40 (21-72) U/L Alkaline Phosphatase 92 (38-126) U/L Total Protein 7.6 (6.3-8.2) g/dL Albumin 4.7 (3.5-5.0) g/dL Current Medications Generic Name Dose Route Start Last Admin Trade Name Freq PRN Reason Stop Dose Admin Acetaminophen 1,000 mg 11/25/18 21:12 11/25/18 21:22 Tylenol Tab PO 1,000 mg Q6HR PRN Administration Fever and/ or Pain Aspirin 325 mg 11/26/18 09:00 Aspirin PO DAILY CHARLENE Nitroglycerin 0.4 mg 11/25/18 18:36 Nitrostat SUBLINGUAL Q5M PRN Chest Pain Elviteg/Cob/Emtri/ 1 tab 11/26/18 09:00 Tenof Alafen [ PO Genvoya Tablet] 1 DAILY CHARLENE Tab Valacyclovir HCl 2,000 mg 11/25/18 20:31 Valtrex PO DAILY PRN SORES Intake and Output 11/25/18 11/26/18 11/26/18 22:59 06:59 14:59 Intake Total 210 Balance 210 Intake: Intake, IV Titration 210 Amount Sodium Chloride 0.9% 1, 210 000 ml @ 999 mls/hr IV . Q1H1M STA Rx#:[id number] Other: # Voids 1 11/25/18 13:55 11/25/18 14:00
[2018-11-26] MEDS ORDERED: LOSARTAN 25 MG TAB PO SCH (10:00)
[2018-11-26 12:29] VITALS: BP 142/78; PULSE 67; TEMP 98.3
--- NOTE | 2018-11-26 18:55 | ECHOF ---
Referral Reason:cp MEASUREMENTS -------- HEIGHT: 175.3 cm WEIGHT: 83.9 kg BP: 137/81 RVIDd: 3.1 cm (< 3.3) IVSd: 1.2 cm (0.6 - 1.1) LVIDd: 4.6 cm (3.9 - 5.3) LVPWd: 1.2 cm (0.6 - 1.1) IVSs: 1.4 cm LVIDs: 3.1 cm LVPWs: 1.6 cm LA Diam: 3.2 cm (2.7 - 3.8) LAESV Index (A-L): 26.19 ml/m Ao Diam: 3.1 cm (2.0 - 3.7) AV Cusp: 2.3 cm (1.5 - 2.6) MV EXCURSION: 20.043 mm (> 18.000) MV EF SLOPE: 152 mm/s (70 - 150) EPSS: 0.6 cm MV E Az: 0.92 m/s MV DecT: 245 ms MV A Az: 0.65 m/s MV E/A Ratio: 1.42 RAP: 5.00 mmHg RVSP: 31.23 mmHg FINDINGS -------- Sinus rhythm. This was a technically good study. The left ventricular size is normal. There is borderline concentric left ventricular hypertrophy. Overall left ventricular systolic function is normal with, an EF between 60 - 65 %. The right ventricle is normal in size. Normal LA size by volume 22+/-6 ml/m2. The right atrium is normal in size. The aortic valve is trileaflet and appears structurally normal. The mitral valve is normal. The tricuspid valve appears structurally normal. There is no pulmonic regurgitation present. The aortic root size is normal. Normal inferior vena cava with normal inspiratory collapse consistent with estimated right atrial pre ssure of 5 mmHg. There is no pericardial effusion. CONCLUSIONS -------- 1. Sinus rhythm. 2. This was a technically good study. 3. The left ventricular size is normal. 4. There is borderline concentric left ventricular hypertrophy. 5. Overall left ventricular systolic function is normal with, an EF between 60 - 65 %. 6. The right ventricle is normal in size. 7. Normal LA size by volume 22+/-6 ml/m2. 8. The right atrium is normal in size. 9. The aortic valve is trileaflet and appears structurally normal. 10. The mitral valve is normal. 11. The tricuspid valve appears structurally normal. 12. There is no pulmonic regurgitation present. 13. The aortic root size is normal. 14. Normal inferior vena cava with normal inspiratory collapse consistent with estimated right atrial pressure of 5 mmHg. 15. There is no pericardial effusion. PROGRAM ARRANGER: Jessica Gray RDCS
--- NOTE | 2018-11-26 19:29 | HP ---
HISTORY AND PHYSICAL CHIEF COMPLAINT: Chest pain. HISTORY OF PRESENT ILLNESS: This is the first admission for this 43-year-old white male who is HIV-positive. He developed left lateral chest pain and came to the emergency room when it became fairly intense. He had no fever, chills, cough, hemoptysis, history of hypertension, heart disease, etc. Emergency room evaluation was essentially unremarkable. He had no fever. His EKG and enzymes were normal. REVIEW OF SYSTEMS: He has had no fever, chills, cough, hemoptysis, sputum production, history of trauma, history of heart disease, murmurs, rheumatic fever, palpitations, syncope, orthopnea, PND, etc. He has had no abdominal pain, nausea, vomiting, food intolerance, melena, hematochezia, jaundice, hepatitis, cirrhosis, hematuria, frequency, urgency, arthralgias, etc. Past medical history, family history, and personal and social histories are all otherwise unremarkable except for his HIV treatment that he receives from Dr. Perdomo. He is NOT ALLERGIC TO ANY MEDICATION. He also uses a Ventolin inhaler. He has had skin cancer removed. PHYSICAL EXAMINATION: Blood pressure is 128/74 with a pulse of 62, respirations 19, and he is afebrile. In general he appeared to be well developed, well nourished, in no acute distress. Skin color is normal. Skin is warm and dry. Lymph nodes are not enlarged. Head, ears, eyes, nose, mouth and throat were normal. Neck veins were not distended. Thyroid was not enlarged. Chest was clear. He was nontender on the left. Cardiac exam was normal. Abdomen was soft, nontender. Extremities were normal. Neurologically he was intact. He is admitted to the hospital with the diagnoses: 1. Lateral chest wall pain. 2. HIV positivity. PLAN: 1. Bed rest. 2. IV fluids. 3. Serial EKGs and enzymes. MMODL / IJN: [id number] /
--- NOTE | 2018-11-27 07:39 | DS ---
DISCHARGE SUMMARY CHIEF COMPLAINT: Chest pain. HISTORY OF PRESENT ILLNESS AND PHYSICAL EXAM: Details of this man's history and physical can be found in the initial workup. LABORATORY STUDIES: While he was in the hospital, he had laboratory studies, details of which can be found in the laboratory section of his chart. COURSE IN THE HOSPITAL: After admission, he was placed on bedrest and started on intravenous fluids and had serial EKGs and enzymes. He was found to have normal studies, it was felt that he could go home on the . He will follow up in the office. He will stay on his usual diet and activity. While he was in the hospital, his lipids were significantly elevated, and this will be addressed. FINAL DIAGNOSES: 1. Atypical left-sided chest pain. 2. HIV positivity. 3. Hyperlipidemia. OPERATIONS: None. CONSULTATIONS: None. He is improved. HOME / BRYAN: [id number] /
== END 2018-11-26 14:04 | disposition home or self-care (01) ==
LOC: EC 12:01 → 1SOBS 18:43
PROVIDERS: ADMIT Family Medicine; ATTEND Family Medicine
DX: R07.89 Other chest pain (principal); J43.9 Emphysema, unspecified; R79.89 Other specified abnormal findings of blood chemistry; E78.5 Hyperlipidemia, unspecified; I10 Essential (primary) hypertension; F17.200 Nicotine dependence, unspecified, uncomplicated; Z21 Asymptomatic human immunodeficiency virus [HIV] infection status; J98.11 Atelectasis; D72.829 Elevated white blood cell count, unspecified; Z79.899 Other long term (current) drug therapy; Z85.828 Personal history of other malignant neoplasm of skin; Z86.14 Personal history of Methicillin resistant Staphylococcus aureus infection; Z86.19 Personal history of other infectious and parasitic diseases
CPT/HCPCS: 96360; 96361; 99285; 36415; 93005; 93306; 85379; 80061; 80053; 82150; 83690; 83735; 84484 ×2; 85025; 85610; 85730; 81003; 71046; 71275; G0378 ×2; Q9967

== ENCOUNTER → 2021-01-11 | Outpatient (CLI) | payer BC ==
--- NOTE | 2021-01-11 12:10 | XR ---
EXAMINATION TYPE: XR chest 2V DATE OF EXAM: 01/11/2021 COMPARISON: 11/25/2018 HISTORY: Annual physical exam TECHNIQUE: Frontal and lateral views of the chest are obtained. FINDINGS: Heart size is within normal limits. Trachea is midline. No focal consolidation, pneumothor ax or pleural effusion. Hyperaeration lungs and flattening of the diaphragms suggestive of COPD. Coar se interstitial markings are likely chronic. Biapical pleural/parenchymal thickening. IMPRESSION: 1. No acute pulmonary disease. 2. COPD.
== END | disposition home or self-care (01) ==
LOC: RADXRMAIN 11:31
PROVIDERS: ATTEND Family Medicine
DX: Z00.00 Encounter for general adult medical examination without abnormal findings (principal); J44.9 Chronic obstructive pulmonary disease, unspecified
CPT/HCPCS: 71046

== ENCOUNTER → 2021-03-19 | Outpatient (CLI) | payer BC ==
[2021-03-20 00:54] LABS: Basophils # (A) 0.02 X 10*3/uL (0.00-0.10); Basophils % (A) 0.3 %; Eosinophils # (A) 0.17 X 10*3/uL (0.04-0.35); Eosinophils % (A) 2.7 %; HCT 42.6 % (39.6-50.0); HGB 13.9 g/dL (13.0-17.0); Lymphocytes # (A) 2.23 X 10*3/uL (0.90-5.00); Lymphocytes % (A) 35.1 %; MCH 31.7 pg (27.0-32.0); MCHC 32.6 g/dL (32.0-37.0); Mean Platelet Volume 11.3 fL (9.5-12.2); Monocytes % (A) 9.4 %; Neutrophils # (A) 3.32 X 10*3/uL (1.80-7.70); Neutrophils % (A) 52.2 %; Platelet Count 300 X 10*3/uL (140-440); RBC 4.39 X 10*6/uL (4.40-5.60); WBC 6.36 X 10*3/uL (4.50-10.00)
[2021-03-20 10:02] LABS: African American GFR (CKD) 104.9 (60.0-200.0); Albumin 4.6 g/dL (3.80-4.90); Albumin/Globulin Ratio 1.84 (1.60-3.17); Anion Gap 11.8 mmol/L (4.00-12.00); Calcium 9.2 mg/dL (8.7-10.3); Carbon Dioxide 24.2 mmol/L (21.6-31.8); Globulin 2.5 g/dL (1.6-3.3); Non-African American GFR(CKD) 90.5 (60.0-200.0); Potassium 4.4 mmol/L (3.5-5.5); Total Bilirubin 0.6 mg/dL (0.3-1.2); Total Protein 7.1 g/dL (6.2-8.2)
[2021-03-20 13:19] LABS: T4/T8 Ratio (CD4:CD8) 1.6 (1.0-3.7)
[2021-03-20 20:55] LABS: HIV-1 RNA Not detected (Not detected); HIV-1 RNA, Quant <40 Copies/mL (<40)
== END | disposition home or self-care (01) ==
LOC: LABWHC1 14:57
PROVIDERS: ATTEND Internal Medicine Infectious Disease
DX: B20 Human immunodeficiency virus [HIV] disease (principal)
CPT/HCPCS: 36415; 80053; 85025; 86360; 87536